=== PATIENT | female | born 1960 | race Caucasian/White ===

== ENCOUNTER 2023-06-16 09:29 | Outpatient (CLI) | payer OTHER | END 2023-06-16 09:30 | disposition home or self-care (01) | LOC: CSHCT 09:29 | PROVIDERS: ATTEND Internal Medicine | DX: E78.00 Pure hypercholesterolemia, unspecified (principal); K44.9 Diaphragmatic hernia without obstruction or gangrene | CPT/HCPCS: 75571 ==

== ENCOUNTER 2024-07-14 12:46 | Outpatient (CLI) | payer BC | END 2024-07-14 12:47 | disposition home or self-care (01) | LOC: CSHMAMMO 12:46 | PROVIDERS: ATTEND Internal Medicine | DX: M81.8 Other osteoporosis without current pathological fracture (principal); M85.851 Other specified disorders of bone density and structure, right thigh; M85.852 Other specified disorders of bone density and structure, left thigh | CPT/HCPCS: 77080 ==